=== PATIENT | male | born 1955 | race Two or more races ===

== ENCOUNTER 2020-10-24 11:09 | Emergency (ER) | payer OTHER ==
[~2020-10-24] VITALS: Ht 162.6 cm; Wt 57.2 kg
[2020-10-24] MEDS ORDERED: AMOX1TAB5 PO (12:04)
[2020-10-24] MEDS ORDERED: BUTALB-ACETAMI1 EACH PO (16:56)
== END 2020-10-24 19:23 ==
LOC: ER 11:09
DX: R55 Syncope and collapse (principal); R51.9 Headache, unspecified; Z03.818 Encounter for observation for suspected exposure to other biological agents ruled out; Z98.890 Other specified postprocedural states